=== PATIENT | female | born 1990 | race African-American/Black ===

== ENCOUNTER 2016-07-27 14:50 | Inpatient (IN) | payer MEDICAID ==
[2016-07-27] VITALS (8 sets, daily range): BP systolic 102–121; BP diastolic 54–82; Ht 170.2 cm; Wt 110.5 kg
[~2016-07-27] VITALS: Ht 170.2 cm; Wt 110.5 kg
[2016-07-27 11:38] LABS: HEMATOCRIT 35.2 % (36.0-48.0); HEMOGLOBIN 11.2 g/dL (12-16); MCH 27.7 pg (26.0-34.0); MCHC 31.8 g/dL (31.0-37.0); MCV 86.9 fL (80.0-100.0); MEAN PLATELET VOLUME 12.4 fL (7.4-10.4); RBC 4.05 10x6/uL (4.00-5.40); RDW 15.2 % (11.5-14.5); WBC 4.6 10x3/uL (4.8-10.8)
[2016-07-27 12:44] LABS: HCG URINE NEGATIVE (NEGATIVE)
[~2016-07-27 14:50] MED LIST: BACTRIM DS TABL1 TAB PO; HYDROCODONE-APA1 TAB PO; IBUPROFEN600 MG PO; NORCO 7.5/325 T1 TA1 PO; PERCOCET 5-3251 TAB PO; PRENAVITE1 TAB PO
--- NOTE | 2016-07-27 14:55 | NUR ---
RECIEVED PATIENT VIA BED WITH NATALIA ORTA FROM RECOVERY ROOM. PATIENT AWAKE, ALERT AND ORIENTED X'S 4. BED RAILS UP X'S 2. WOUND VAC TO RIGHT LATERAL LOWER LEG. INCISION TO LEFT MEDIAL LOWER LEG WITH DRESSING, LEAKING BLOOD. APPLIED 75% OF A BOX OF 4X4 GAUZE AND WRAPPED WITH KERLIX.
[2016-07-27 19:15] LABS: ALBUMIN 3.5 g/dL (3.4-5.0); ALKALINE PHOSPHATASE 65 U/L (46-116); ALT (SGPT) 13 U/L (10-68); BILIRUBIN - TOTAL 0.45 mg/dL (0.2-1.3); CALC OSMOLALITY 280 mosm/kg (275-300); CALCIUM 8.8 mg/dL (8.5-10.1); CARBON DIOXIDE 26.7 mmol/L (21.0-32.0); CHLORIDE - SERUM 106 mmol/L (98-107); CREATININE - SERUM 0.9 mg/dL (0.6-1.3); GLUCOSE 113 mg/dL (74-106); POTASSIUM - SERUM 4.2 mmol/L (3.5-5.1); PROTEIN - SERUM 7.1 g/dL (6.4-8.2); SODIUM 141 mmol/L (136-145); UREA NITROGEN 9 mg/dL (7-18); eGFR NON AFRICAN AMERICAN 80 mL/min (90-120)
--- NOTE | 2016-07-27 20:20 | NUR ---
PATIENT RESTING IN LOW FOWLERS POSITION. NO SIGNS OF DISTRESS NOTED AT THIS TIME. BED LOW. CALL LIGHT IN REACH. DENIES NEEDS AT THIS TIME.
[2016-07-28] VITALS: BP 108/59
[2016-07-28 04:00] VITALS: BP 105/52
--- NOTE | 2016-07-28 04:39 | NUR ---
PT IS IN BED WITH NO DISTRESS. SIDE RAILS ARE UP X 2. BED IS LOW. CALL LIGHT IS IN REACH.
[2016-07-28 05:51] LABS: BASOPHILS 0.1 % (0.0-2.0); EOSINOPHILS 0 % (0-7); HEMATOCRIT 34.6 % (36.0-48.0); HEMOGLOBIN 11.2 g/dL (12-16); IMMATURE GRANULOCYTES 0.2 % (0-5); LYMPHOCYTES 13.1 % (15-50); MCH 27.9 pg (26.0-34.0); MCHC 32.4 g/dL (31.0-37.0); MCV 86.1 fL (80.0-100.0); MEAN PLATELET VOLUME 12.8 fL (7.4-10.4); MONOCYTES 7.3 % (2-11); NEUTROPHILS 79.3 % (40-80); PLATELET COUNT 293 10x3/uL (130-400); RBC 4.02 10x6/uL (4.00-5.40); RDW 15.1 % (11.5-14.5)
[2016-07-28 06:07] LABS: WBC 8.4 10x3/uL (4.8-10.8)
[2016-07-28 06:09] LABS: ALBUMIN 3.5 g/dL (3.4-5.0); ALKALINE PHOSPHATASE 67 U/L (46-116); ALT (SGPT) 13 U/L (10-68); CALC OSMOLALITY 274 mosm/kg (275-300); CALCIUM 9.1 mg/dL (8.5-10.1); CARBON DIOXIDE 22.8 mmol/L (21.0-32.0); CHLORIDE - SERUM 105 mmol/L (98-107); CREATININE - SERUM 0.8 mg/dL (0.6-1.3); GLUCOSE 86 mg/dL (74-106); POTASSIUM - SERUM 4.3 mmol/L (3.5-5.1); PROTEIN - SERUM 7.1 g/dL (6.4-8.2); SODIUM 139 mmol/L (136-145); eGFR NON AFRICAN AMERICAN > 90 mL/min (90-120)
[2016-07-28 06:12] LABS: UREA NITROGEN 6 mg/dL (7-18)
[2016-07-28 08:48] VITALS: BP 104/76
[2016-07-28 13:55] VITALS: BP 131/63
[2016-07-28 16:05] VITALS: BP 115/56
--- NOTE | 2016-07-28 18:35 | NUR ---
D/C IV FROM RIGHT HAND WITH CATH INTACT
--- NOTE | 2016-07-28 20:00 | NUR ---
REPORT RECEIVED AND CARE ASSUMED. LYING IN BED, WATCHING TV. RESPIRATIONS EVEN AND UNLABORED. BEDRAILS X 2 UP. DENIES ANY NAUSEA OR EMESIS. WOUND VAC TO RIGHT LEG WITH DRESSING IN PLACE. SCD ON LEFT LEG. WILL MONITOR.
[2016-07-28 21:11] VITALS: BP 107/53
[2016-07-29 04:50] LABS: APPEARANCE HAZY (CLEAR); COLOR YELLOW (YELLOW)
[2016-07-29 04:51] LABS: BILIRUBIN NEGATIVE (NEGATIVE); GLUCOSE NEGATIVE (NEGATIVE); KETONE NEGATIVE (NEGATIVE); LEUKOCYTE ESTERASE TRACE (NEGATIVE); NITRITE NEGATIVE (NEGATIVE); PROTEIN NEGATIVE (NEGATIVE); UROBILINOGEN NORMAL (NORMAL)
[2016-07-29 04:54] VITALS: BP 112/68
[2016-07-29 04:58] LABS: BACTERIA MODERATE /hpf (NONE SEEN); EPITHELIAL CELLS 25-50 /hpf (0-5); HYALINE CAST RARE /lpf (NONE SEEN); WHITE CELLS - URINE 0-5 /hpf (0-5)
[2016-07-29 05:46] LABS: BASOPHILS 0.2 % (0.0-2.0); EOSINOPHILS 0.2 % (0-7); HEMOGLOBIN 10.2 g/dL (12-16); IMMATURE GRANULOCYTES 0.2 % (0-5); LYMPHOCYTES 40.7 % (15-50); MCH 27.6 pg (26.0-34.0); MCHC 31.9 g/dL (31.0-37.0); MCV 86.7 fL (80.0-100.0); MEAN PLATELET VOLUME 11.5 fL (7.4-10.4); MONOCYTES 10.3 % (2-11); NEUTROPHILS 48.4 % (40-80); RBC 3.69 10x6/uL (4.00-5.40); RDW 15.2 % (11.5-14.5)
[2016-07-29 05:50] LABS: PLATELET COUNT 202 10x3/uL (130-400); WBC 4.5 10x3/uL (4.8-10.8)
[2016-07-29 06:29] LABS: ALBUMIN 3.1 g/dL (3.4-5.0); ALKALINE PHOSPHATASE 59 U/L (46-116); CHLORIDE - SERUM 107 mmol/L (98-107); CREATININE - SERUM 0.8 mg/dL (0.6-1.3); GLUCOSE 76 mg/dL (74-106); POTASSIUM - SERUM 3.8 mmol/L (3.5-5.1); PROTEIN - SERUM 6.3 g/dL (6.4-8.2); SODIUM 140 mmol/L (136-145); eGFR NON AFRICAN AMERICAN > 90 mL/min (90-120)
[2016-07-29 06:31] LABS: ALT (SGPT) 9 U/L (10-68); CALC OSMOLALITY 275 mosm/kg (275-300); UREA NITROGEN 8 mg/dL (7-18)
--- NOTE | 2016-07-29 07:51 | NUR ---
received pt care. placed pt on contact isolation for MRSA in wound per microbiology. no co pain at this time. will continue to monitor. will continue plan of care.
--- NOTE | 2016-07-29 08:03 | OP ---
PATIENT NAME: KARLOS RAYA MEDICAL RECORD: [id number] :90 LOCATION:D[facility] ADMISSION DATE:07/27/16 SURGEON: ADEILNA VALDIVIA MD DATE OF OPERATION: 07/27/2016 PREOPERATIVE DIAGNOSIS: Infected right ankle with hardware. POSTOPERATIVE DIAGNOSIS: Infected right ankle with hardware. PROCEDURE PERFORMED: Right ankle hardware removal with wound VAC placement. Wound size was 10 cm x 3 cm x 2 cm. SURGEON: Malcolm Valdivia MD ANESTHESIA: General. CONDITION: She tolerated the procedure well, was transferred to the recovery room in stable condition at termination of the procedure. INDICATIONS: This is a 26-year-old female who underwent ORIF of her ankle 3 months ago. She has not been seen in followup since her surgery. She presented ____ back with notable drainage from her ankle over 3 months out. Therefore, with this being the case, fracture overall looked healed, we therefore felt that this had to go out and she would need to be on IV antibiotics. She was brought to the hospital for this purpose. OPERATIVE REPORT: The patient was taken to the operating room, placed in supine position. General anesthesia was obtained. The lateral incision was opened up through the previous incision. The plate was removed. She did have a TightRope for a syndesmosis instability. This was removed. She did have a large hole going through her tibia. This was curetted out with a curette. The button was removed from the medial side and this side was cleaned as well. She was then copiously irrigated. Following which, a 10 x 3 x 2 cm silver wound VAC dressing was placed. She was hooked up to the wound VAC. She was then awakened and transferred back to the recovery room in a stable condition. She did receive Ancef in the recovery room. I will start on vancomycin, get an ID consultation, proceed from this juncture. TRANSINT:[id number] Voice Confirmation ID: [id number] DOCUMENT ID: [id number] ADELINA VALDIVIA MD at 0803 CC: [id number] DICTATION DATE: 07/27/16 1444 DIRECTOR MBA: 07/27/16 1522 [place] [address]
[2016-07-29 10:05] VITALS: BP 130/79
--- NOTE | 2016-07-29 10:41 | CN ---
PATIENT NAME:KARLOS RAYA MEDICAL RECORD: [id number] : 90 LOCATION:D[facility] ADMIT DATE: 07/27/16 ACCOUNT: [id number] CONSULTING PHYSICIAN: CLIFTON RUIZ DO REFERRING PHYSICIAN: ADELINA VALDIVIA MD DATE OF CONSULTATION: 07/27/2016 [facility] Practice Consultation HISTORY OF PRESENT ILLNESS: Ms. Raya is a 26-year-old -[place] female that is seen for medical management after undergoing removal of hardware per right ankle. Initial ankle injury was in March 2016. She underwent removal of hardware today. Postoperatively, her pain seems controlled. She denies any significant medical problems. She denies any history of diabetes, hypertension, heart disease or other medical problems. PAST MEDICAL HISTORY: Unremarkable. PAST SURGICAL HISTORY: Includes repair of broken jaw in 2010 and an ORIF of the right ankle in 2015. ALLERGIES: LATEX, WHICH CAUSES A YEAST INFECTION. HOME MEDICATIONS: Amma, Bactrim, and ibuprofen. FAMILY HISTORY: Significant for cardiovascular disease. SOCIAL HISTORY: The patient has been a smoker in the past. REVIEW OF SYSTEMS: She denies any recent fever, chills or sweats. Complains of pain in the right ankle. Denies any chest pain or shortness of breath. LABORATORY DATA: White count was 4.6, H&H of 11.2 and 35.2 with a platelet count of 248. PHYSICAL EXAMINATION: GENERAL: No distress. HEENT: Unremarkable. NECK: Soft and supple. HEART: Regular. LUNGS: Clear. ABDOMEN: Soft. EXTREMITIES: Dressings in the right ankle is dry and intact. IMPRESSION: Status post open reduction and internal fixation of the right ankle, status post hardware removal. PLAN: Medically, she appears stable. Wound care per Dr. Valdivia and we will follow along. TRANSINT:[id number] Voice Confirmation ID: [id number] DOCUMENT ID: [id number] CONSULT REPORT [id number] KARLOS RAYA CLIFTON RUIZ DO at 1041 CC: [id number] DICTATION DATE: 07/27/161728 [employer] CLERK: 07/27/16 1943 ADM IN [place] [id number] [place] [address]
--- NOTE | 2016-07-29 11:50 | NUR ---
WEIGHT ON ELECTRONIC SCALES OF 240.0
[2016-07-29 13:08] VITALS: BP 142/87
--- NOTE | 2016-07-29 14:29 | NUR ---
Patient Name: KARLOS RAYA Admission Status: Elective Accout number: [id number] Admission Date: 07-27-2016 : 1990 Admission Diagnosis:INFECT/INFLM REACT DUE TO OTH INT ORTH PROSTH DEV/GRFT, Attending: ANASTASIA Current LOS: 2 Anticipated DC Date: 07-30-2016 Planned Disposition: Home with Home Health Primary Insurance: MEDICAID [place] Discharge Planning Comments: CM MET WITH PATIENT REGARDING D/C NEEDS AND PLANS. PATIENT STATED SHE LIVES ALONE AND HER COUSIN (CAITLYN) WILL BE STAYING WITH HER AND POSSIBLY HER MOTHER (MATIAS). PATIENT IS INDEPENDENT WITH HER CARE AND HAS CRUTCHES AT HOME. PATIENT DOES NOT HAVE A PCP AND USES [facility] FOR HER PHARMACY. PATIENT CHOSE [facility] AND SIGNED THE [facility] FORM. [facility] WILL BE THE SUPPLIER FOR HER ANTIBIOTICS. CM WILL CONTINUE TO FOLLOW PATIENT WITH D/C NEEDS AND PLANS. PCP NONE [facility]- [phone] MATIAS (MOM) [phone] [employer]ter In[employer] Heating Equipment: Humera Pappas Is the patient Alert and Oriented? Yes 0 * How many steps to enter\exit or inside your home? 21 W/RAILS 0 * PCP NONE 0 * Pharmacy [facility] 0 * Preadmission Environment Home Alone 0 * ADLs Independent 0 * List name and contact numbers for known caregivers / representatives who currently or will assist patient after discharge: CAITLYN (COUSIN) WILL BE STAYING WITH HER CANT REMEMBER NUMBER MATIAS (MOM) [phone] 0 * Community resources currently utilized None 0 * Additional services required to return to the preadmission environment? Yes 0 * Can the patient safely return to the preadmission environment? Yes 0 * Has this patient been hospitalized within the prior 30 days at any hospital? No 0 Grand Total: 0
--- NOTE | 2016-07-29 14:45 | NUR ---
PT IS ALERT. ASSESSMENT DONE PER FLOWSHEET. NO CO PAIN AT THIS TIME. WILL CONTINUE TO MONTITOR. JUST KEEPS ASKING WHEN SHE GETS TO GO HOME.
--- NOTE | 2016-07-29 16:17 | NUR ---
PT SHOWS NO SS OF DISTRESS AT THIS TIME. WILL CONTINUE TO MONITOR.
[2016-07-29 19:00] VITALS: BP 118/71
[2016-07-30] VITALS: BP 102/53
[2016-07-30 04:00] VITALS: BP 124/76
[2016-07-30 07:01] LABS: BASOPHILS 0.2 % (0.0-2.0); EOSINOPHILS 1.3 % (0-7); HEMATOCRIT 29.9 % (36.0-48.0); HEMOGLOBIN 9.3 g/dL (12-16); LYMPHOCYTES 39.3 % (15-50); MCHC 31.1 g/dL (31.0-37.0); MCV 86.9 fL (80.0-100.0); MEAN PLATELET VOLUME 11.8 fL (7.4-10.4); MONOCYTES 10.4 % (2-11); NEUTROPHILS 48.8 % (40-80); PLATELET COUNT 200 10x3/uL (130-400); RBC 3.44 10x6/uL (4.00-5.40); WBC 4.6 10x3/uL (4.8-10.8)
[2016-07-30 07:39] LABS: ALBUMIN 2.8 g/dL (3.4-5.0); ALKALINE PHOSPHATASE 52 U/L (46-116); ALT (SGPT) 11 U/L (10-68); CALC OSMOLALITY 275 mosm/kg (275-300); CALCIUM 8.1 mg/dL (8.5-10.1); CARBON DIOXIDE 24.9 mmol/L (21.0-32.0); CHLORIDE - SERUM 106 mmol/L (98-107); CREATININE - SERUM 0.8 mg/dL (0.6-1.3); GLUCOSE 80 mg/dL (74-106); POTASSIUM - SERUM 3.6 mmol/L (3.5-5.1); PROTEIN - SERUM 6.3 g/dL (6.4-8.2); SODIUM 140 mmol/L (136-145); UREA NITROGEN 8 mg/dL (7-18); eGFR NON AFRICAN AMERICAN > 90 mL/min (90-120)
--- NOTE | 2016-07-30 08:00 | NUR ---
PT ASSESSMENT IS COMPLETE. AWAKE AND ALERTR ORIENTED X 3 LUNGS CLEAR BILATERALLY NO DISTESS NOTED READY TO DISCHARGE TO HOME AWAITING DISCHARGE ORDER WOUND VAC TO RIGHT ANKLE NOTED TO BE FUNCTIONING PROPERLY.
[2016-07-30 09:10] VITALS: BP 128/77
[2016-07-30] MEDS ORDERED: CUBICIN500 MG IV (12:09)
[2016-07-30] MEDS ORDERED: HYDROCODONE-APA1 TAB PO (12:10)
--- NOTE | 2016-07-30 13:30 | NUR ---
WOUND NURSE IN ROOM TO CHANGE WOUND VAC PRIOR TO DISCHARGE. PT GIVEN DISCHARGE INSTRUCTIONS AND RX.
--- NOTE | 2016-07-30 13:46 | NUR ---
WOUND CARE CONSULT/WOUND VAC DRESSING CHANGE: WOUND VAC DRESSING CHANGE WOUND TYPE: SURGICAL WOUND LOCATION: RIGHT ANKLE WOUND AGE IN MONTHS: DEBRIDEMENT ATTEMPTED IN LAST 10 DAYS? DATE/TYPE: SURGICAL DEBRIDEMENT SERIAL DEBRIDEMENTS REQUIRED? UNKNOWN MEASUREMENT DATE: 07/30/16 9CM X 3.5CM X 2CM FULL THICKNESS? YES MUSCLE, TENDON OR BONE EXPOSED? NO UNDERMINING? NO TUNNELING/SINUS? NO APPEARANCE OF WOUND BED : RED/BEEFY EXUDATE (AMOUNT, COLOR, ODOR): SMALL, BLOODY - NO ODOR FOAM TYPE: BLACK # OF PIECES USED: 1 PIECE EDUCATION: FUNCTION/PURPOSE OF WOUND VAC/DRESSING CHANGES M-W-F BY HH/HOW TO CHANGE CANISTERS/PAIN CONTROL PRIOR TO CHANGING DRESSING PT VOICED UNDERSTANDING. NOTED AN OPEN WOUND TO RIGHT MEDIAL ANKLE MEASURING 1CM X 1CM. MODERATE SEROUS DRAINAGE. NO ODOR. RECOMMEND [facility] TO WOUND BED / CHANGING M-W-F WITH VAC DRESSING CHANGE.
--- NOTE | 2016-07-30 13:48 | NUR ---
REQUESTED AND RECIEVED PAIN MEDS PER ORDER GIVEN HYDROCODONE PER ORDER. PT TO BE DISCHARGED AT THIS TIME PICC LINE IN PLACE FLUSHED WELL BOTH LINES AND SWAB CAPS IN PLACE TO BOTH CLAMPED LINES
--- NOTE | 2016-07-30 13:53 | NUR ---
ALERT AND ORIENTED X4. ASSIST TO WHEELCHAIR FOR DISCHARGE. ESCORT TO RIDE VIA WHEELCHAIR. REMAIN FREE FROM INJURY.
--- NOTE | 2016-07-30 13:58 | NUR ---
DISCHARGED VIA WHEELCHAIR TO PRIVATE VEHICLE AT THIS TIME
--- NOTE | 2016-07-30 14:25 | NUR ---
LATE ENTRY- PATIENT DISCHARGED HOME TODAY WITH [facility] AND SIGNED THE [employer] FORM. PATIENTS FAMILY DROVE PATIENT HOME AT DISCHARGE. [facility] DELIVERING IV ABX TO HOME. WOUND VAC APPLIED.
--- NOTE | 2016-08-18 07:00 | DS ---
PATIENT:KARLOS RAYA :89 MEDICAL RECORD: [id number] DISCHARGE SUMMARY ADMISSION DATE: 07/27/16 DISCHARGE DATE: 07/30/16 DATE OF ADMISSION: 07/27/2016 DATE OF DISCHARGE: 07/30/2016 ADMITTING DIAGNOSIS: Right ankle infection. DISCHARGE DIAGNOSIS: Right ankle infection. PROCEDURE PERFORMED: Right ankle hardware removal and wound VAC placement. HISTORY OF PRESENT ILLNESS: This is a 26-year-old young lady that underwent open reduction internal fixation of her ankle. This was several months ago. She did not come back for followup. When she did come back she has been walking on the ankle and her wounds were draining. Initially, this was treated with some antibiotics trying to see if this would resolve, but it did not, it was felt that the juncture she is now seeing, that the hardware needs to be removed and then she needs to be on antibiotics. She was brought in the hospital and underwent hardware removal as well as wound VAC placement. She additionally had a PICC line placed and was started on IV antibiotics. We did consult Dr. Wilkins for involvement with the antibiotic treatment. Once this was from his juncture, we felt it was appropriate. She was discharged to see us back in about 7-10 days, we will follow her labs and markers and see if we can get this to a close. We will see her back in about 10 days. TRANSINT:[id number] Voice Confirmation ID: [id number] DOCUMENT ID: [id number] ADELINA FERRARO MD at 0700 CC: [id number] DICTATION DATE: 08/17/16 1152 LINEN ROOM HOUSEPERSON: 08/17/16 2249 DIS IN 07/30/[address] [facility] [address] [place] [address]
== END 2016-07-30 13:58 | disposition home health service (06) | DRG 493 ==
LOC: D.OPS 14:50 → D.MS 15:04 → D.OPS 15:05 → D.MS 07-29 15:54
PROVIDERS: Anesthesiology; Family Medicine; Student in an Organized Health Care Education/Training Program; ADMIT Orthopaedic Surgery Sports Medicine
PROC: 0SPF04Z Removal of Internal Fixation Device from Right Ankle Joint, Open Approach (ICD-10-PCS; principal; 2016-07-27 12:00)
PROC: 02HV33Z Insertion of Infusion Device into Superior Vena Cava, Percutaneous Approach (ICD-10-PCS; 2016-07-28)
PROC: B548ZZA Ultrasonography of Superior Vena Cava, Guidance (ICD-10-PCS; 2016-07-28)
DX: T84.7XXA Infection and inflammatory reaction due to other internal orthopedic prosthetic devices, implants and grafts, initial encounter (principal); M86.9 Osteomyelitis, unspecified; Z91.19 Patient's noncompliance with other medical treatment and regimen; R30.0 Dysuria

== ENCOUNTER → 2016-08-02 13:32 | Outpatient (CLI) | payer MEDICAID ==
[2016-07-27 15:13] VITALS: BMI 38.1
[~2016-08-02 13:32] MED LIST changes: +CUBICIN500 MG IV
[2016-08-02 15:00] LABS: BASOPHILS 0.2 % (0.0-2.0); EOSINOPHILS 1.8 % (0-7); HEMATOCRIT 31.2 % (36.0-48.0); IMMATURE GRANULOCYTES 0.2 % (0-5); LYMPHOCYTES 28.4 % (15-50); MCH 27.5 pg (26.0-34.0); MCHC 32.1 g/dL (31.0-37.0); MCV 85.7 fL (80.0-100.0); MEAN PLATELET VOLUME 12.7 fL (7.4-10.4); MONOCYTES 10.3 % (2-11); NEUTROPHILS 59.1 % (40-80); RBC 3.64 10x6/uL (4.00-5.40); WBC 5.7 10x3/uL (4.8-10.8)
[2016-08-02 15:04] LABS: PLATELET COUNT 268 10x3/uL (130-400)
[2016-08-02 15:34] LABS: C-REACTIVE PROTEIN 2.4 mg/dL (0.0-0.9); CREATININE - SERUM 0.8 mg/dL (0.6-1.3)
[2016-08-02 16:39] LABS: ERYTHROCYTE SEDIMENTATION RATE 44 mm/hr (0-20)
== END | disposition home or self-care (01) ==
LOC: D.LABREF 13:32
PROVIDERS: Student in an Organized Health Care Education/Training Program
DX: T81.4XXA Infection following a procedure, initial encounter (principal); A49.02 Methicillin resistant Staphylococcus aureus infection, unspecified site

== ENCOUNTER → 2016-08-09 16:44 | Outpatient (CLI) | payer MEDICAID ==
[2016-07-27 15:13] VITALS: BMI 38.1
[2016-08-09 17:00] LABS: BASOPHILS 0.3 % (0.0-2.0); EOSINOPHILS 1.6 % (0-7); HEMATOCRIT 33.2 % (36.0-48.0); HEMOGLOBIN 10.2 g/dL (12-16); LYMPHOCYTES 43.8 % (15-50); MCH 26.8 pg (26.0-34.0); MCHC 30.7 g/dL (31.0-37.0); MCV 87.4 fL (80.0-100.0); MONOCYTES 11.6 % (2-11); NEUTROPHILS 42.7 % (40-80); PLATELET COUNT 276 10x3/uL (130-400); RDW 14.8 % (11.5-14.5); WBC 3.7 10x3/uL (4.8-10.8)
[2016-08-09 17:13] LABS: C-REACTIVE PROTEIN 0.3 mg/dL (0.0-0.9); CREATININE - SERUM 0.8 mg/dL (0.6-1.3)
[2016-08-09 18:19] LABS: ERYTHROCYTE SEDIMENTATION RATE 35 mm/hr (0-20)
== END | disposition home or self-care (01) ==
LOC: D.LABREF 16:44
PROVIDERS: Student in an Organized Health Care Education/Training Program
DX: M86.679 Other chronic osteomyelitis, unspecified ankle and foot (principal); Z79.2 Long term (current) use of antibiotics

== ENCOUNTER → 2016-08-16 14:33 | Outpatient (CLI) | payer MEDICAID ==
[2016-07-27 15:13] VITALS: BMI 38.1
[2016-08-16 19:47] LABS: C-REACTIVE PROTEIN 0.4 mg/dL (0.0-0.9); CREATININE - SERUM 0.8 mg/dL (0.6-1.3)
[2016-08-16 21:22] LABS: ERYTHROCYTE SEDIMENTATION RATE 21 mm/hr (0-20)
== END | disposition home or self-care (01) ==
LOC: D.LABREF 14:33
PROVIDERS: Student in an Organized Health Care Education/Training Program
DX: Z51.81 Encounter for therapeutic drug level monitoring (principal); Z79.2 Long term (current) use of antibiotics; Z45.2 Encounter for adjustment and management of vascular access device

== ENCOUNTER 2016-08-20 20:13 | Emergency (ER) | payer MEDICAID ==
[2016-07-27 15:13] VITALS: BMI 38.1
[2016-08-20 21:34] LABS: APPEARANCE HAZY (CLEAR); BILIRUBIN NEGATIVE (NEGATIVE); COLOR YELLOW (YELLOW); GLUCOSE NEGATIVE (NEGATIVE); KETONE NEGATIVE (NEGATIVE); LEUKOCYTE ESTERASE TRACE (NEGATIVE); NITRITE POSITIVE (NEGATIVE); PROTEIN NEGATIVE (NEGATIVE); SPECIFIC GRAVITY 1.025 (1.005-1.020); UROBILINOGEN NORMAL (NORMAL)
[2016-08-20 21:35] LABS: BACTERIA MANY /hpf (NONE SEEN); EPITHELIAL CELLS 0-5 /hpf (0-5); RED CELLS - URINE OCC /hpf (0-5); WHITE CELLS - URINE 0-5 /hpf (0-5)
== END 2016-08-20 21:56 | disposition home or self-care (01) ==
LOC: D.ER 20:13
PROVIDERS: Nurse Practitioner Acute Care
DX: T36.8X5A Adverse effect of other systemic antibiotics, initial encounter (principal); Y92.019 Unspecified place in single-family (private) house as the place of occurrence of the external cause; N39.0 Urinary tract infection, site not specified

== ENCOUNTER → 2016-08-23 13:03 | Outpatient (CLI) | payer MEDICAID ==
[2016-07-27 15:13] VITALS: BMI 38.1
[2016-08-23 13:45] LABS: BASOPHILS 0 % (0.0-2.0); EOSINOPHILS 0.8 % (0-7); HEMATOCRIT 32.6 % (36.0-48.0); HEMOGLOBIN 10.3 g/dL (12-16); IMMATURE GRANULOCYTES 0.2 % (0-5); LYMPHOCYTES 39.3 % (15-50); MCH 27.7 pg (26.0-34.0); MCHC 31.6 g/dL (31.0-37.0); MCV 87.6 fL (80.0-100.0); MEAN PLATELET VOLUME 12.5 fL (7.4-10.4); MONOCYTES 8.5 % (2-11); NEUTROPHILS 51.2 % (40-80); PLATELET COUNT 269 10x3/uL (130-400); RBC 3.72 10x6/uL (4.00-5.40); RDW 14.6 % (11.5-14.5); WBC 4.7 10x3/uL (4.8-10.8)
[2016-08-23 13:49] LABS: CREATININE - SERUM 0.9 mg/dL (0.6-1.3); UREA NITROGEN 13 mg/dL (7-18)
[2016-08-23 13:50] LABS: C-REACTIVE PROTEIN < 0.2 mg/dL (0.0-0.9)
[2016-08-23 14:54] LABS: ERYTHROCYTE SEDIMENTATION RATE 20 mm/hr (0-20)
== END | disposition home or self-care (01) ==
LOC: D.LABREF 13:03
PROVIDERS: Student in an Organized Health Care Education/Training Program
DX: Z51.81 Encounter for therapeutic drug level monitoring (principal); Z79.899 Other long term (current) drug therapy; M86.9 Osteomyelitis, unspecified

== ENCOUNTER 2016-09-15 12:53 | Outpatient (CLI) | payer MEDICAID ==
[~2016-09-15] VITALS: Ht 170.2 cm; Wt 111.4 kg
[2016-09-15 14:48] VITALS: BP 120/72; Ht 170.2 cm; Wt 111.4 kg
--- NOTE | 2016-09-15 14:53 | NUR ---
1400-WOUND CARE NURSE TO BEDSIDE. WOUND VAC DRESSING CHANGED. 1415-D/C HOME, INSTRUCTED TO RETURN TUESDAY AT 0900 FOR WOUND VAC CHANGE
== END 2016-09-15 14:15 | disposition home or self-care (01) ==
LOC: D.OPS 12:53
DX: T81.4XXA Infection following a procedure, initial encounter (principal)

== ENCOUNTER 2017-03-16 13:10 | Emergency (ER) | payer MEDICAID ==
[2016-09-15 14:48] VITALS: BMI 38.4
[2017-03-16 13:59] LABS: BASOPHILS 0 % (0-2); EOSINOPHILS 0.2 % (0-7); HEMATOCRIT 32.1 % (36.0-48.0); HEMOGLOBIN 10.7 g/dL (12-16); IMMATURE GRANULOCYTES 0.2 % (0-5); MCH 29.4 pg (26.0-34.0); MCHC 33.3 g/dL (31.0-37.0); MCV 88.2 fL (80.0-100.0); MEAN PLATELET VOLUME 11.8 fL (7.4-10.4); MONOCYTES 9.9 % (2-11); NEUTROPHILS 60.7 % (40-80); RBC 3.64 10x6/uL (4.00-5.40); RDW 14.5 % (11.5-14.5); WBC 4.3 10x3/uL (4.8-10.8)
[2017-03-16 14:15] LABS: APPEARANCE CLOUDY (CLEAR); BILIRUBIN NEGATIVE (NEGATIVE); COLOR DK YELLOW (YELLOW); GLUCOSE NEGATIVE (NEGATIVE); KETONE LARGE mg/dL (NEGATIVE); LEUKOCYTE ESTERASE 2+ (NEGATIVE); NITRITE POSITIVE (NEGATIVE); PROTEIN TRACE mg/dL (NEGATIVE); SPECIFIC GRAVITY 1.015 (1.005-1.020)
[2017-03-16 14:16] LABS: BACTERIA MANY /hpf (NONE SEEN); MUCUS <1+ /lpf (NONE SEEN); RED CELLS - URINE 0-5 /hpf (0-5)
[2017-03-16 14:16] LABS: PLATELET COUNT 196 10x3/uL (130-400)
== END 2017-03-16 15:48 | disposition home or self-care (01) ==
LOC: D.ER 13:10
PROVIDERS: Emergency Medicine; Nurse Practitioner Family
DX: O23.41 Unspecified infection of urinary tract in pregnancy, first trimester (principal); O30.101 Triplet pregnancy, unspecified number of placenta and unspecified number of amniotic sacs, first trimester; Z3A.09 9 weeks gestation of pregnancy